=== PATIENT | male | born 1965 | race Caucasian/White ===

== ENCOUNTER 2017-03-07 10:49 | Day surgery (SDC) | payer BC ==
[~2017-03-07] VITALS: Ht 177.8 cm; Wt 104.5 kg
[2017-03-07] MEDS ORDERED: LISI-519 PO (11:24)
[2017-03-07] MEDS ORDERED: POTA10CA PO (11:24)
[2017-03-07] MEDS ORDERED: NITR1SUB3 SL (11:24)
[2017-03-07] MEDS ORDERED: CARV3.12 PO (11:24)
[2017-03-07] MEDS ORDERED: ASPI325T PO (11:24)
[2017-03-07] MEDS ORDERED: ROSU10 PO (11:24)
[2017-03-07] MEDS ORDERED: PRAS10TA PO (11:24)
[2017-03-07 11:31] VITALS: BP 145/96; PULSE 60; RESP 18; TEMP 97.8; O2SAT 98
[2017-03-07 11:36] LABS: AUTOMATED NEUTROPHIL # 3.3 TH/MM3 (1.8-7.7); BASOPHIL % 0.3 % (0.0-2.0); EOSINOPHIL # 0.1 TH/MM3 (0-0.4); EOSINOPHIL % 2.4 % (0.0-4.0); HEMATOCRIT 46.8 % (39.0-51.0); HEMO FLAGS DIFF FINAL; LYMPH % 22.6 % (9.0-44.0); LYMPHOCYTE # 1.2 TH/MM3 (1.0-4.8); MEAN CELL VOLUME 87.7 FL (80.0-100.0); MEAN CORPUSCULAR HEMOGLOBIN 29.1 PG (27.0-34.0); MEAN CORPUSCULAR HGB CONC 33.2 % (32.0-36.0); MONO % 12.4 % (0.0-8.0); NEUT % 62.3 % (16.0-70.0); PLATELET COUNT 163 TH/MM3 (150-450); RED BLOOD COUNT 5.33 MIL/MM3 (4.50-5.90); RED CELL DISTRIBUTION WIDTH 14.2 % (11.6-17.2); WHITE BLOOD COUNT 5.3 TH/MM3 (4.0-11.0)
[2017-03-07 11:43] LABS: PROTHROMBIN TIME - PATIENT 11.1 SEC (9.8-11.6)
[2017-03-07 11:54] LABS: BICARBONATE 26.4 MEQ/L (21.0-32.0); POTASSIUM 5.1 MEQ/L (3.5-5.1)
[2017-03-07] MEDS ORDERED: ASPIRIN 81 MG CHEW TAB PO SCH (12:00)
[2017-03-07] MEDS ORDERED: IOHEXOL 350 MG/ML 50 ML BTL (for Cath Lab) OTHER ONE (13:02)
[2017-03-07] MEDS ORDERED: HEPARIN-NS/PF INJ 500 ML ONE (13:08)
[2017-03-07] MEDS ORDERED: MISC INFORMATION XX ONE ×2 (14:00)
[2017-03-07] MEDS ORDERED: SODIUM CHLORIDE 0.9% FLUSH 10 ML FLUSH PRN (14:00)
[2017-03-07] MEDS ORDERED: SODIUM CHLORIDE 0.9% FLUSH 10 ML FLUSH IV FLUSH PRN (14:00)
--- NOTE | 2017-03-07 14:08 | CATHPROC ---
[employer] HIS Report Study Information Study Number Scheduled Start Study Start [id number] 03/07/2017 Mar 07 2017 1:02PM Referring Institution Admit Source Facility Department 1 [facility] - Management Associate Physician and Clinical Staff Initial Bhanu Elise RN, Abiodun Vázquez RN, En García RCIS(BS) Yane Marina RCIS TECH2 Procedures Performed Procedure Location (Site) Vessel Name Coronary Angiograms LCA Left Coronary Coronary Angiograms RCA Right Coronary LV Gram-hand inj. LV LV Ventricle Equipment Time Cap Blocker Description Size Mfg Part Number Used/Scraped CATHETER, FR5 SWAN SHARON 13:08 TAVERAS MCGEE FR 5 [id number] *[id number] Used MONITOR TRANSDUCER, TRUWAVE 13:05 TAVERAS MCGEE * [id number] Used W/STOCKCOCK [id number] *[id number] *[id number] 13:05 [employer] PACK, CCL CUSTOM * Used *[id number] 13:05 [employer] PACER PEN, SKIN DUAL W/ RULER * [id number] Used [id number] 13:07 [employer] MEDICAL SHEATH, FR4.5 PRELUDE 11CM FR 4.5 Used [id number] 13:08 [employer] MEDICAL SHEATH, FR5.5 PRELUDE 11CM FR 5 [id number] Used [id number] 13:05 [employer] MEDICAL WIRE, 3MMJ .035 180CM 180CM Used *[id number] 13:05 NAMIC MANIFOLD, 4 PORT * Used *[id number] 13:05 NYCOMED OMNIPAQUE, 350 MG, 100ML 100ML [id number] Used [id number] 13:05 DWYER MEDICAL BLANKET,WARM AIR CCL * Used *[id number] 13:08 TERUMO MEDICAL SHEATH, FR5 TERUMO (10CM) FR 5 [id number] Used History: Current Medications Medication Dosage/Unit Route Frequency Last Date/Time Taken ASA Beta Krystle EFFIENT Statins (any) History: Allergies Allergy Reaction Codeine Brompheniramine History: Risk Factors Family History of Hypertension Dyslipidemia Previous MT Previous Heart Failure Premature CAD Yes Yes No Yes No Prior Valve Prior PCI Prior PCIDate Prior CABG Surgery No Yes 04/21/2016 No Cerebrovascular Peripheral Artery Chronic Lung On Dialysis Diabetes Disease Disease Disease No No No No No History: Stress Tests Stress or Imaging Studies Performed Yes Standard Exercise Stress Test No Stress Echo No Stress Test SPECT Stress Test SPECT Result Stress Test SPECT Ischemia Risk/Extent Yes Positive High Stress Test CMR No Cardiac CTA Coronary Calcium Score No No History: MT/CV Data Previous Cath Date 04/21/2016 History: Other Current Smoker No Labs Hgb (g/dl) Hct (%) WBC (l/cumm) Platelets (thousands) 12.00-18.00 37.00-55.00 4.80-10.80 140.00-450.00 15.5 46.8 5.3 163 Glucose (mg/dl) BUN (mg/dl) Creatinine (mg/dl) BUN:Creatinine (1:x) 60.00-110.00 8.00-20.00 0.10-9.00 10.00-20.00 91 11 0.7 15.7 Na (meq/l) K (meq/l) 138.00-146.00 3.80-5.10 138 5.1 INR (PTT:PT) 0.50-2.00 1 CPK-MB (ng/ML) 0.00-7.00 Not Drawn Medication Medication Total Dose (Bolus/Oral) Medication Total Dosage/Unit 1% XYLOCAINE 20 mL Medications (Bolus/Oral) Medication Time Given Dosage/Unit Administered By Reason 1% XYLOCAINE 03/07/2017 1:29:52 PM 20 mL RyanBhanu 20 mL 1% XYLOCAINE given in lab by Bhanu Davis in Right Groin via Subcutaneous. Medication (Drip) Medication Time Given Dosage/Unit Concentration/Unit Diluent (ml) Solutio n IV Solutions 03/07/2017 1:02:18 PM 0 mL (IV) 500 NaCl .9 Patient arrived on IV Solutions in Right Antecubital via Peripheral IV. Pump/Drip Flow = 20 ml/hr usi ng NaCl .9. Initial Case Assessment Cardiovascular HR Rhythm NIBP Chest Pain 61 SR 132/80 0 Edema Present Skin color Skin None Normal Warm Dry Circulatory - Right Pulses Dorsalis Pedis Femoral 2 2 Scale (0,1,2,3,4,d) Circulatory - Left Pulses Dorsalis Pedis Femoral 1 1 Scale (0,1,2,3,4,d) Circulatory - Lower Extremities Color Lower Right Color Lower Left Normal Normal Neurological State Oriented to time-place- Alert Moves all extremities person Respiration - General Respiration Rate SpO2 (%) (B/min) 25 97 Initial Case Assessment Cardiovascular HR Rhythm NIBP Chest Pain 62 SR 132/76 0 Edema Present Skin color Skin None Normal Warm Dry Circulatory - Right Pulses Dorsalis Pedis Femoral 2 2 Scale (0,1,2,3,4,d) Circulatory - Left Pulses Dorsalis Pedis Femoral 1 1 Scale (0,1,2,3,4,d) Circulatory - Lower Extremities Color Lower Right Color Lower Left Normal Normal Neurological State Oriented to time-place- Alert Moves all extremities person Respiration - General Respiration Rate SpO2 (%) (B/min) 25 97 Chronological Log Time Study Chronological Log 13:02:02 Patient arrived via Bed. 13:02:03 Patient Name, D.O.B, / Armband Verified By R.N. 13:02:03 Consent signed by the physician and the patient and verified by the Management Associate staff. 13:02:04 Pre-op and post- op instructions given; patient acknowledges understanding of instructions. 13:02:11 Immediate Presedation assesment performed by physician. 13:02:12 Patient has been NPO for Less than 6Hrs. 13:02:13 Skin Breakdown- 13:02:13 Patient Warmer Placed on the Table. 13:02:17 A # 20 IV was noted in the Antecubital (right). Grade = 0 13:02:18 Patient arrived on IV Solutions in Right Antecubital via Peripheral IV. Pump/Drip Flow = 20 ml/hr using NaCl .9. 13:02:18 History and physical on the chart or being dictated. Assessment: Initial Case, HR=61 BPM, Rhythm=SR, ITWJ=090/80 mmhg, Chest Pain=0, Edema=None, Col or=Normal, Skin = Warm, Dry Right Pulses: Sajan Ped=2, Femoral=2 Left Pulses: Sajan Ped=1, Femoral=1 13:02:21 Lower Right Extremities: Color=Normal Lower Left Extremities: Color=Normal Neurological: State=Alert, Ox3, GARCÍA Respiration: Resp=25 B/min, SpO2=97 % Vitals capture started with the following parameters, Patient=Adult, Interval=15 min, Initial P lnvfrut=327 mmHg, 13:08:08 Deflation Rate=5 mmHg 13:08:54 HR=62 bpm, FQYG=860/84 mmhg, SpO2=97.0 %, Resp=18 B/min, Pain=0, Joey=10, Perrin=2 13:12:38 Bilateral groins prepped with 2% chlorhexidine, and with a 3 min. waiting time. 13:13:46 HR=61 bpm, HKCF=816/80 mmhg, SpO2=98.0 %, Resp=14 B/min, Pain=0, Joey=10, Perrin=2 13:15:20 Reference ECG taken 13:18:07 Pressure channel 1 zeroed. 13:18:13 MD paged 13:18:50 HR=63 bpm, JZGR=054/73 mmhg, SpO2=97.0 %, Resp=18 B/min, Pain=0, Joey=10, Perrin=2 13:19:48 MD responded 13:23:49 HR=60 bpm, BZUN=451/76 mmhg, SpO2=96.0 %, Resp=17 B/min, Pain=0, Joey=10, Perrin=2 13:26:39 MD arrived. 13:26:43 Contrast Scanned 13:28:46 HR=65 bpm, AJJB=735/90 mmhg, SpO2=97.0 %, Resp=17 B/min, Pain=0, Joey=10, Perrin=2 Time Out. Correct patient, correct procedure,correct physician, ,power injector not loaded with contrast with surgical 13:28:56 team present. Time Out Concurred by MD, individual staff in procedure 13:29:51 Case Start 13:29:52 20 mL 1% XYLOCAINE given in lab by Bhanu Davis in Right Groin via Subcutaneous. 13:31:16 Access site was Right Femoral Artery. 13:31:22 A SHEATH, FR4.5 PRELUDE 11CM FR 4.5 was advanced into the Fem Art (right) using the Percuta neous technique. 13:31:49 Saturation: Site=Ao (Aorta) , O2=98 %, Hgb=15.5 gm/dl, Condition=Condition 1. Used in [facility]. 13:33:51 HR=66 bpm, OOJZ=822/88 mmhg, SpO2=96.0 %, Resp=11 B/min, Pain=0, Joey=10, Perrin=2 13:34:34 Access site was Right Femoral Vein. 13:34:38 A SHEATH, FR5.5 PRELUDE 11CM FR 5 was advanced into the Fem Vein (right) using the Percutan eous technique. 13:34:43 A CATHETER, FR5 SWAN SHARON MONITOR FR 5 was inserted via Fem Vein (right) Recorded Pressure: PCW, HR=68, Condition=Condition 1 13:35:41 (Pulmonary Capillary Wedge) PCW 22/20/15 Recorded Pressure: MPA, HR=64, Condition=Condition 1 13:36:14 (Main Pulmonary Artery) MPA 43/ 13:36:55 Saturation: Site=PA (Pulmonary Artery) , O2=75.6 %, Hgb=15.5 gm/dl, Condition=Condition 1. Used in calculation. Recorded Pressure: RV, HR=63, Condition=Condition 1 13:37:05 (Right Ventricle) RV 42//10 Recorded Pressure: RA, HR=61, Condition=Condition 1 13:37:19 (Right Atrium) RA 13:37:30 Saturation: Site=RA (Right Atrium) , O2=77.1 %, Hgb=15.5 gm/dl, Condition=Condition 1. Used in calculation. 13:38:12 [place] Catheter Removed A JR 4.0 INFINITI CATHETER FR 4 was advanced over a wire. OMNIPAQUE, 350 MG, 100ML 100ML was us ed for 13:38:17 injections. 13:38:48 HR=61 bpm, HYCI=880/76 mmhg, SpO2=96.0 %, Resp=18 B/min, Pain=0, Joey=10, Perrin=2 Recorded Pressure: LV, HR=61, Condition=Condition 1 13:38:49 (Left Ventricle) LV 134/7/20 13:38:53 The LV was manually injected with 10 cc's and visualized. OMNIPAQUE, 350 MG, 100ML 100ML us ed. Recorded Pressure: LV, Ao, HR=62, Condition=Condition 1 13:39:16 (Left Ventricle) LV 134/6/16, (Aorta) Ao 141/87/109 13:39:29 The RCA was injected and visualized at various angles. OMNIPAQUE, 350 MG, 100ML 100ML used . 13:39:44 Catheter was removed A JL 4.0 INFINITI CATHETER FR 4 was advanced over a wire. OMNIPAQUE, 350 MG, 100ML 100ML was us ed for 13:39:45 injections. Recorded Pressure: Ao, HR=63, Condition=Condition 1 13:40:48 (Aorta) Ao 126/77/99 13:41:04 The LCA was injected and visualized at various angles. OMNIPAQUE, 350 MG, 100ML 100ML used . 13:42:11 Catheter was removed 13:42:40 Case End Assessment: Initial Case, HR=62 BPM, Rhythm=SR, BWCE=514/76 mmhg, Chest Pain=0, Edema=None, Col or=Normal, Skin = Warm, Dry Right Pulses: Sajan Ped=2, Femoral=2 Left Pulses: Sajan Ped=1, Femoral=1 13:42:47 Lower Right Extremities: Color=Normal Lower Left Extremities: Color=Normal Neurological: State=Alert, Ox3, GARCÍA Respiration: Resp=25 B/min, SpO2=97 % 13:42:59 No case complications noted. 13:42:59 Cine recording checked. 13:43:03 A Left and Right Heart Cath was performed. 13:43:08 Catheter(s) removed without difficulty 13:43:49 HR=61 bpm, JXGO=421/83 mmhg, SpO2=97.0 %, Resp=12 B/min, Pain=0, Joey=10, Perrin=2 13:45:02 Sheath removed; pressure applied to access site. 13:49:16 HR=64 bpm, RUKD=329/87 mmhg, SpO2=96.0 %, Resp=14 B/min, Pain=0, Joey=10, Perrin=2 13:53:49 HR=62 bpm, YLDE=188/91 mmhg, SpO2=96.0 %, Resp=11 B/min, Pain=0, Joey=10, Perrin=2 13:58:52 HR=63 bpm, QXLZ=824/89 mmhg, SpO2=97.0 %, Resp=12 B/min, Pain=0, Joey=10, Perrin=2 14:03:51 HR=64 bpm, UVKR=758/90 mmhg, SpO2=97.0 %, Resp=13 B/min, Pain=0, Joey=10, Perrin=2 14:07:04 Sterile dressing applied to site 14:08:18 Vitals capture stopped. 14:08:22 Patient moved to stretcher End Study - Contrast Media Used In Study Contrast Total Opened (mL) Total Used (mL) Total Wasted (mL) Omnipaque 30 30 0 End Study - Maximum Contrast Load Max Contrast Load (mL) 746.4 End Study - Radiation Exposure Fluoro Time (minutes) 1.8 End Study - Sheaths Sheaths Pulled By Sheath Hold Time (min) Yane Jack 20 End Study - Patient Disposition Complications Transferred To Interventional Outcome No Management Associate Holding No attempt made
--- NOTE | 2017-03-07 16:40 | MR ---
cc: CCList DATE 03/07/17 PROCEDURES Right heart catheterization, left heart catheterization, left ventriculography, coronary angiography, INDICATION High risk nuclear stress test. [place] Cardiovascular Society Class III angina, coronary artery disease, cardiomyopathy, CHF, new onset chest pain, dyspnea on minimal exertion. PROCEDURE IN DETAIL The patient was brought to the cardiac catheterization laboratory, prepped and draped in the usual sterile fashion. 10 ccs of 1% lidocaine was used to locally anesthetize the right common femoral artery. 4-Mongolian sheath subsequently placed in the right common femoral artery. A 5-Mongolian sheath was placed in the right common femoral vein. Right heart catheterization was performed first with the following findings: Pulmonary capillary wedge pressure 22/20-15. PA pressure 43/16-27. RV pressure 42/5-10. RA pressure 10/8-7. FA sat on room air 98%. PA7 room air 75.6%. RA sat on room air 77.1%. Cardiac output by Bennie 5.9 liters per minute. Cardiac index by Bennie 2.6 liters meters squared per minute. SVR 1241 dynes. Left heart catheterization was then performed, 4-Mongolian JR-4, JL-4 catheter, LV pressures 134/15-22, EF 45%. I do not see any obvious focal signal wall motion abnormalities. Right coronary is nondominant, has a proximal 50% stenosis. The left main coronary artery has no significant disease angiographically. Left circumflex vessel was a large dominant vessel, mild diffuse disease in the proximate AV groove up to 10% angiographically. The left PDA has no significant obstructive disease. There is a ramus intermedius vessel which has an ostial 51% stenosis. It is a medium-sized vessel. Otherwise no significant obstructive disease. LAD has mild diffuse disease in the proximal segment up to 20-30% angiographically, distended in the mid segment, is widely patent. The LAD is transapical beyond the stent. There is mild diffuse disease up to 20% angiographically. There is a small to medium size first diagonal artery which has no significant obstructive disease. Second diagonal artery is a small vessel with no significant disease angiographically. CONCLUSION 1. Mild to moderate three-vessel coronary artery disease in a left dominant system as detailed above. 2. Cardiomyopathy, EF 45%. 3. Mild to moderately elevated right heart pressures as detailed above. 4. Elevated LVDP. 5. Recommend to continue aspirin 81 milligrams daily, carvedilol 3.25 milligrams b.i.d., Crestor 10 daily, Effient 10 milligrams daily, lisinopril 5 milligrams daily. MD CAMILA Galvez/SANDY /1:51 PM /4:11 PM
[2017-03-07] MEDS ORDERED: SODIUM CHLORIDE 0.9% FLUSH 10 ML FLUSH SCH (21:00)
[2017-03-07] MEDS ORDERED: SODIUM CHLORIDE 0.9% FLUSH 10 ML FLUSH IV FLUSH SCH (21:00)
--- NOTE | 2017-03-08 14:18 | EKG ---
Date Performed: 03/07/2017 Time Performed: 11:33:58 PTAGE: 51 years EKG: Sinus rhythm . --- Suspect arm lead reversal - only aVF, V1-V6 analyzed --- Anteroseptal infarct - age undetermine d Possible inferior infarct - age undetermined Repeat tracing necessary with proper lead placement Ab normal ECG NO PREVIOUS TRACING DOCTOR: Milo Lyons Interpretating Date/Time 03/08/2017 14:17:21
== END 2017-03-07 17:20 | disposition home or self-care (01) ==
LOC: HDOC 10:49 → HDIC 10:49 → HDOC 17:20
PROVIDERS: ATTEND Internal Medicine Interventional Cardiology
DX: I25.119 Atherosclerotic heart disease of native coronary artery with unspecified angina pectoris (principal); I42.9 Cardiomyopathy, unspecified; I11.0 Hypertensive heart disease with heart failure; I50.9 Heart failure, unspecified; E78.5 Hyperlipidemia, unspecified; G47.33 Obstructive sleep apnea (adult) (pediatric); Z88.5 Allergy status to narcotic agent; Z95.5 Presence of coronary angioplasty implant and graft
CPT/HCPCS: 80048; 85025; 85610; 93005; 93460; C1769; C1893; J1644; Q9967